=== PATIENT | female | born 1975 | race Caucasian/White ===

== ENCOUNTER 2023-08-29 18:48 | Observation (INO) | payer OTHER, SELFPAY ==
[2023-08-29] VITALS (8 sets, daily range): BP systolic 110–145; BP diastolic 64–98; BMI 31.6; BMI 31.4
[2023-08-29 11:48] LABS: % Basophils 0.9 % (0-2); % Immature Granulocytes 0.6 % (0-0.5); % Lymphocytes 27.4 % (20.5-51.1); % Monocytes 5.2 % (1.7-9.3); % Neutrophils 64.9 % (42.2-75.2); Absolute Basophils 0.1 10^3/uL (0-0.2); Absolute Eosinophils 0.1 10^3/uL (0-0.7); Absolute Immature Granulocytes 0.1 10^3/uL (0-0.05); Absolute Lymphocytes 2.2 10^3/uL (1.2-3.4); Absolute Monocytes 0.4 10^3/uL (0.1-0.6); Absolute Neutrophils 5.2 10^3/uL (1.4-6.5); Hematocrit 37.7 % (37.0-47.0); Mean Corp Hgb Conc. 34.5 g/dL (33.0-37.0); Mean Corpuscular Hgb 29.1 pg (27.0-31.0); Mean Corpuscular Volume 84.3 fL (81.0-99.0); Mean Platelet Volume 9.8 fL (7.4-10.4); Nucleated Red Blood Cells % 0 %; Platelet Count 324 10^3/uL (130-400); Red Blood Cell Count 4.47 10^6/uL (4.20-5.40); Red Cell Dist. Width 13.4 % (11.5-14.5)
[2023-08-29] MEDS: ZOFRAN 4 MG IV ×2 (12:00→17:33)
[2023-08-29] MEDS: NSS 1000 IV ×2 (12:02→20:35)
[2023-08-29 12:06] LABS: ALT (SGPT) 30 U/L (0-35); AST (SGOT) 37 U/L (14-36); Albumin 4.6 g/dl (3.5-5.0); Alkaline Phosphatase 116 U/L (38-126); Blood Urea Nitrogen 11 mg/dl (7-17); Calcium 9.5 mg/dl (8.4-10.2); Carbon Dioxide 24 mmol/L (22-30); Chloride 107 mmol/L (98-107); Estimated Creatinine Clearance 123 ml/min; Glucose 89 mg/dl (70-99); HCG, Serum Qualitative Screen Negative; Lipase 132 U/L (23-300); Potassium 4.4 mmol/L (3.5-5.1); Sodium 141 mmol/L (135-145); Total Bilirubin 0.6 mg/dl (0.2-1.3); Total Protein 7.8 g/dl (6.3-8.2); eGFR > 60.00
[2023-08-29 12:19] LABS: Urine Albumin Negative (Neg - Trace); Urine Bilirubin Negative (Negative); Urine Character Clear (Clear); Urine Color Yellow; Urine Glucose Negative (Negative); Urine Ketone Negative (Negative); Urine Leukocyte 2+ (Negative); Urine Nitrite Negative (Negative); Urine Occult Blood Negative (Negative); Urine Urobilinogen Negative (Neg - 1+)
[2023-08-29 12:59] LABS: Urine Squamous Cell >30 /LPF (Few)
[2023-08-29 13:00] LABS: Urine Bacteria Moderate (Negative); Urine Red Blood Cell 0-2 /HPF (0-2); Urine White Cell 0-2 /HPF (0-5)
[2023-08-29] MEDS: ATIVAN 0.5 MG PO (13:51)
[2023-08-29] MEDS: ATIVAN 1 MG IV (14:48)
[2023-08-29] MEDS: BENADRYL 50 MG IV (15:23)
[2023-08-29] MEDS: REGLAN 10 MG IV ×2 (15:23→21:01)
--- NOTE | 2023-08-29 16:49 | ED.GENMED ---
History of Present Illness
General
Chief Complaint: Fainting Sensation
Source: patient
Exam Limitations: none
Time Seen by Provider: 08/29/23 11:29
Nursing documentation reviewed up to this point in time: agreed with
Travel History
Have you had any contact with someone who has COVID-19?: No
Do you have any symptoms of coronavirus? Fever > 100 degrees, chills, cough, shortness of breath, sore throat, loss of taste or smell, muscle aches, or headache?: No
History of Present Illness
History of Present Illness:
48-year-old female with past medical history of anxiety depression panic attacks presenting to the emergency department today with concerns of nausea and anxiety vomited multiple times as well. Claims that she think she is also having a panic
attack that she does have frequently and takes Ativan as needed. Denies any initial chest pain shortness of breath diarrhea fever. Denies any sick contacts.
Past History
Past History
ED Past Medical History: None
ED Past Surgical History: None
Review of Systems
Review of Systems
Allergies reviewed?: Yes
All Other Systems: ROS reviewed and negative except as documented in HPI and ROS
Phy Exam
Physical Exam
Physical Exam:
GENERAL: Alert
EYE: pupils equal and reactive
NECK: Supple, no significant adenopathy.
ENT: o/p clr, mmm.
CARDIAC: Regular rate and rhythm .
LUNGS: Clear breath sounds bilaterally, no acute respiratory distress, no wheezes/rales/rhonchi
ABDOMEN: Soft, without focal tenderness, no r/g, no cvat
NEUROLOGICAL: Alert and oriented, no focal neuro deficits
SKIN: Warm and dry, skin intact.
MUSCULOSKELETAL: No edema, well perfused.
PSYCH: Normal and appropriate interaction.
Course
Orders/Labs/Results
Orders:
Orders
08/29/23 11:37
Test Result ONCE
08/29/23 11:38
Complete Blood Count/With Diff Urgent
Comprehensive Metabolic Panel Urgent
HCG, Serum Qualitative Screen Urgent
Lipase Urgent
08/29/23 11:54
Ondansetron Injectable [Zofran] 4 mg IV NOW STA
08/29/23 11:55
0.9% Sodium Chloride 1000 ml [Nss] 1,000 ml IV BOLUS
08/29/23 12:10
Urinalysis Reflex To Culture Urgent
Date Specimen was Collected: 08/29/23
Time Specimen was Collected: 12:02
Urine Microscopic Reflex Cult Urgent
Urine Culture Urgent
NATE Source: U
Specimen Description:
Date Specimen was Collected: 08/29/23
Time Specimen was Collected: 12:02
08/29/23 13:45
Lorazepam [Ativan] 0.5 mg PO NOW STA
08/29/23 14:41
Lorazepam [Ativan] 1 mg IV NOW STA
08/29/23 14:56
EKG [Electrocardiogram (*1)] Urgent
Reason for Study: Tachycardia
08/29/23 14:57
EKG- Treatment ONCE
08/29/23 15:04
Chest X-ray Portable [CR Chest Portable - 1 View] Urgent
Comment:
Reason For Exam: acute chest pain
Reason Study Needs to be Portable: Patient Unstable
08/29/23 15:14
Diphenhydramine [Benadryl] 50 mg IV NOW STA
Metoclopramide [Reglan] 10 mg IV NOW STA
08/29/23 17:11
Ondansetron Injectable [Zofran] 4 mg IV NOW STA
Abnormal Lab Results
08/29/23 08/29/23
11:38 12:10
Abs Immat Gran (auto) 0.1 H 10^3/uL
(0-0.05)
Immature Gran % 0.6 H %
(0-0.5)
AST 37 H U/L
(14-36)
Leukocyte Esterase Rfl 2+ A
(Negative)
Urine Bacteria (Reflex) Moderate A
(Negative)
08/29/23 11:38
08/29/23 11:38
Vital Signs
Initial and Last Documented VS:
Initial Vital Signs
Temp Pulse Resp BP Pulse Ox
99.3 F 86 16 118/73 97
08/29/23 11:21 08/29/23 11:21 08/29/23 11:21 08/29/23 11:21 08/29/23 11:21
Last Documented Vital Signs
Temp Pulse Resp BP Pulse Ox
98.0 F 71 18 111/73 100
08/29/23 15:36 08/29/23 17:30 08/29/23 16:16 08/29/23 16:00 08/29/23 16:00
MDM/Problems Addressed
MDM/Problems Addressed:
48-year-old female presenting to the emergency department today with concerns of nausea vomiting anxiety prior to arrival brought in by EMS also felt lightheaded. On arrival vital signs are normal. She did not appears anxious was offered Ativan
but initially refused because she wanted to be able to drive home. Was given Zofran fluids and labs were obtained labs unremarkable EKG with no signs of ischemia or arrhythmia urinalysis not consistent with infection. Chest x-ray normal patient
claims that she was feeling increasingly anxious and requested an Ativan she took the Ativan and immediately vomited. She then started to hyperventilate an IV was placed was given IV Ativan with improving symptoms. She was claiming that she was
having some chest discomfort after she was hyperventilating and vomited a few times here. Repeat EKG was performed without acute abnormalities and chest x-ray was normal as well. Cardiac process unlikely in the circumstance. Patient given
multiple medications still retching and vomiting and feeling very lightheaded plan to admit for further treatment.
*Critical Care Note
Total Time (30-74mins, 75-104mins- exclusive of procedures): Not Applicable
ED Attending Note
-
Portions of this chart may have been created with voice recognition software.� Occasional wrong word or��sound alike� substitutions may have occurred due to the inherent limitations of voice recognition software.
Discharge Plan
Departure
Patient Disposition: Admit
Date of Disposition: 08/29/23
Time of Disposition: 18:34
Admit to: Med/Surg
Admit to doctor: Bueno
Presentation/result/management discussed w/ accepting MD/DO: Hospitalist
Patient with high blood pressure during this ER visit?: No
Condition: Good
Covid-19: Not Applicable
Discharge Problem:
Vomiting
Prescriptions:
No Action
lorazepam 0.5 MG tablet
0.5 mg PO Q4HPRN PRN (Reason: anxiety)
Referrals:
UNKNOWN - PT DOES,NOT KNOW [Family Provider] -
Interventions
Interventions:
*Risk Screen - Suicide Last Done: 08/29/23 11:29
*General Assessment Last Done: 08/29/23 11:29
*Neglect/Abuse Screening Last Done: 08/29/23 11:29
ED- Neurological Assessment Last Done: 08/29/23 11:38
ED- Cardiac Assessment Last Done: 08/29/23 11:38
BX-Yeeksg-Gtkcicrqew Assessment Last Done: 08/29/23 11:38
Discharge Date and Time
Print Language: MONTSERRATIAN
--- NOTE | 2023-08-29 18:45 | HPS.HSE ---
Family Physician
-
Family Physician: NOT KNOW UNKNOWN - PT DOES
Chief Complaint
-
vomiting
History of Present Illness
48-year-old female past medical history of anxiety, depression, panic attacks presenting to the emergency room with nausea and vomiting, lightheadedness after taking 1.7 mg of Wegovy for the first time this morning for weight loss. This was the
first time she took the medication. She also felt anxious and did have chest pain described as aching which she continues to have. She denies shortness of breath. She denies any fevers or chills. She denies abdominal pain or diarrhea.
While in the emergency room she hyperventilated was given IV Ativan. She currently states that she does not feel anxious.
She does get panic attacks frequently during which she gets nauseous.
She denies smoking, alcohol use or any drugs.
Medical History
Past Medical History
Past Medical History: Reports Other (anxiety, depression, panic attacks )
Past Surgical History: Reports None
Social History
Tobacco: Non-smoker
Alcohol: None
Drug: None
Family History
Family History: Not pertinent
Allergies / Home Medications
Allergies reflects when Allergies were last updated in [facility].
Home Medications with original date entered in [facility]
Allergy/Medication List:
Allergies
Allergy/AdvReac Type Severity Reaction Status Date / Time
Penicillins Allergy Rash Verified 08/29/23 11:29
Home Medications
lorazepam 0.5 mg tablet 0.5 mg PO Q4HPRN PRN anxiety 05/07/19
sertraline 50 mg tablet (Zoloft) 75 mg PO DAILY 08/29/23
Review of Systems
-
History Source: Patient
A 12 point ROS was completed and negative except as noted: Yes
Constitutional: Reports No Symptoms
EENT: Reports No Symptoms
Respiratory: Reports No Symptoms
Cardiac: Reports See HPI
Abdomen/GI: Reports See HPI
: Reports No Symptoms
Musculoskeletal: Reports No Symptoms
Skin: Reports No Symptoms
Neurological: Reports No Symptoms
Endocrine: Reports No Symptoms
Hematologic/Lymphatic: Reports No Symptoms
Psych: Reports No Symptoms
Physical Exam
Vital Signs
Vital Signs
Temp Pulse Resp BP Pulse Ox
98.0 F 71 18 111/73 100
08/29/23 15:36 08/29/23 17:30 08/29/23 16:16 08/29/23 16:00 08/29/23 16:00
Physical Exam
General: Well Developed, Well Nourished and No Apparent Distress
HEENT: NormoCephalic, Moist mucous membranes and Atraumatic
Respiratory: Clear
Cardiac: S1/S2 and Regular Rhythm; No Murmur or Rub
GI: Soft, Non Tender, Non Distended and Normal Bowel Sounds; No Organomegaly
Rectal: Deferred by Provider
Musculoskeletal: No Clubbing, No Cyanosis and No Edema
Skin: No Rash
Neuro: Nonfocal/grossly intact
Laboratory Results
-
08/29/23 11:38
08/29/23 11:38
Laboratory Results
Total Bilirubin 0.6 mg/dl (0.2-1.3) 08/29/23 11:38
AST 37 U/L (14-36) H 08/29/23 11:38
ALT 30 U/L (0-35) 08/29/23 11:38
Alkaline Phosphatase 116 U/L (38-126) 08/29/23 11:38
Lipase 132 U/L (23-300) 08/29/23 11:38
Data Reviewed
-
Lab Data: Labs Reviewed by me
Old Records: Reviewed
Impression/Plan
-
IMPRESSION:
PLAN:
# Vomiting secondary to Wegovy toxicity
-Started on 1.7 mg which is too high for first dose
-N.p.o.
-IV fluids
-Reglan for nausea and vomiting
# Chest pain possibly due to anxiety/musculoskeletal/GERD
-EKG unremarkable
-Chest x-ray
-Chest tender to palpation
-Protonix
Anxiety/Hx of panic attacks
-Continue sertraline
-Continue as needed Ativan IV
Full code
DVT prophylaxis�heparin
N.p.o.
[2023-08-29] MEDS: NSS (PRESERVATIVE FREE) 10 ML IV (19:02)
[2023-08-29] MEDS: PROTONIX IV 40 MG IV (19:03)
--- NOTE | 2023-08-29 19:16 | PHANOTE ---
08/29/2023, med rec tech, spoke to pt. to obtain their med. history; per pt., she just started her Wegovy 1.7mg/0.75ml today and believes to have had a negative reaction to it; filled on 08/27/2023 for a 28-day supply.
[2023-08-29] MEDS: HEPARIN 5000 UNITS SC (20:36)
[2023-08-29] MEDS: BENADRYL 6.25 MG IV (23:29)
[2023-08-30] MEDS: ATIVAN 0.5 MG IV ×3 (01:46→22:05)
[2023-08-30] MEDS: NSS (PRESERVATIVE FREE) 0.25 ML IV ×3 (01:46→22:06)
[2023-08-30 03:00] VITALS: BP 112/67
[2023-08-30] MEDS: REGLAN 10 MG IV (03:50)
[2023-08-30 05:44] LABS: % Basophils 0.1 % (0-2); % Immature Granulocytes 0.3 % (0-0.5); % Lymphocytes 13.5 % (20.5-51.1); % Monocytes 4.2 % (1.7-9.3); % Neutrophils 81.9 % (42.2-75.2); Absolute Lymphocytes 1.6 10^3/uL (1.2-3.4); Absolute Monocytes 0.5 10^3/uL (0.1-0.6); Absolute Neutrophils 9.7 10^3/uL (1.4-6.5); Hematocrit 38.3 % (37.0-47.0); Hemoglobin 12.5 g/dL (12.0-16.0); Mean Corp Hgb Conc. 32.6 g/dL (33.0-37.0); Mean Corpuscular Hgb 28.9 pg (27.0-31.0); Mean Corpuscular Volume 88.5 fL (81.0-99.0); Mean Platelet Volume 9.7 fL (7.4-10.4); Nucleated Red Blood Cells % 0 %; Platelet Count 342 10^3/uL (130-400); Red Blood Cell Count 4.33 10^6/uL (4.20-5.40); Red Cell Dist. Width 13.8 % (11.5-14.5); White Blood Cell Count 11.9 10^3/uL (4.8-10.8)
[2023-08-30 06:09] LABS: ALT (SGPT) 26 U/L (0-35); AST (SGOT) 26 U/L (14-36); Albumin 4.3 g/dl (3.5-5.0); Alkaline Phosphatase 116 U/L (38-126); Blood Urea Nitrogen 9 mg/dl (7-17); Calcium 9.2 mg/dl (8.4-10.2); Carbon Dioxide 18 mmol/L (22-30); Chloride 109 mmol/L (98-107); Estimated Creatinine Clearance 118 ml/min; Glucose 102 mg/dl (70-99); Potassium 4.1 mmol/L (3.5-5.1); Sodium 139 mmol/L (135-145); Total Bilirubin 0.4 mg/dl (0.2-1.3); Total Protein 7.3 g/dl (6.3-8.2); eGFR > 60.00
[2023-08-30 07:00] VITALS: BP 131/79
[2023-08-30] MEDS: PROTONIX IV 40 MG IV ×2 (07:07→19:37)
[2023-08-30] MEDS: NSS (PRESERVATIVE FREE) 10 ML IV ×2 (07:07→19:37)
[2023-08-30] MEDS: ZOLOFT 75 MG PO (08:18)
[2023-08-30] MEDS: HEPARIN 5000 UNITS SC ×2 (08:18→19:37)
[2023-08-30] MEDS: ZOFRAN 4 MG IV ×3 (08:34→22:19)
[2023-08-30] MEDS: CARAFATE SUSPENSION 1 GM PO ×3 (10:35→21:51)
[2023-08-30] MEDS: MORPHINE SULFATE 1 MG IV ×3 (10:35→19:48)
[2023-08-30] MEDS: NSS 1000 IV (10:36)
[2023-08-30 11:00] VITALS: BP 105/75
--- NOTE | 2023-08-30 11:17 | CM ---
Met with pt at bedside
Lives with her daughter in a 2 story home
Works PT at [employer], independent, driving
DME - none
SNF/HH - denies past hx
Has ride home at d/c
PCP - Dr Valadez
Pharm - [facility]
CM will follow for d/c planning
Plan - anticipate home no needs
[2023-08-30] MEDS: TUMS EX (EXTRA STRENGTH) CHEWABLE 2 TABLET PO (12:04)
--- NOTE | 2023-08-30 13:28 | W.PN.HOSP.TC ---
Today's Communication/Plan
-
see outlined plan
Assessment / Plan
Assessment / Plan
Assessment:
Epigastric pain, nausea/vomiting
- from Wegovy toxicity - started on 1.7mg, too high for initial dose, no prior titrations were attempted
- stop Wegovy
- symptomatic control: PPI BID, prn anti-emetics, prn TUMS, carafate
- diet: clears, ADAT
- CXR and EKG unremarkable
Anxiety/Hx of panic attacks
- continue sertraline
- continue as needed Ativan IV
hyperchloremic metabolic acidosis
- switch fluids to Bicarbonate
DVT prophylaxis: SC heparin
Code: Full
Anticipated Discharge: Within 24 hours
Subjective/Interval History
-
Date of Service: August 30, 2023
reports epigastric pain, some vomiting last evening, minor amounts today
Objective Data
-
Labs:
Laboratory Results
08/30/23
05:29
WBC 11.9 H
Hgb 12.5
Hct 38.3
Plt Count 342
Sodium 139
Potassium 4.1
Chloride 109 H
Carbon Dioxide 18 L
BUN 9
Creatinine 0.6
Glucose 102 H
Calcium 9.2
Total Bilirubin 0.4
AST 26
ALT 26
Alkaline Phosphatase 116
Vital Signs:
Vital Signs
Temp Pulse Resp BP Pulse Ox
98.6 F 100 20 105/75 99
08/30/23 11:00 08/30/23 11:00 08/30/23 11:00 08/30/23 11:00 08/30/23 11:00
I&O
08/29/23 08/30/23 08/31/23
06:59 06:59 06:59
Intake Total 720 / 720
Output Total 100 / 100
Balance -100 / -100 720 / 720
Physical Exam
-
General: Appears in Distress (epigastric pain)
HEENT: Normocephalic and Atraumatic
Respiratory: Negative Wheezes
Cardiac: Regular Rhythm and S1/S2
Genito-urinary: No Costovertebral Tender
Musculoskeletal: No Edema
Neuro: AO x 3
Psych: Calm
Data Reviewed
-
Total Time Spent with Patient (in minutes): 42
Labs: Labs Reviewed by me
[2023-08-30 15:00] VITALS: BP 143/72
[2023-08-30] MEDS: SODIUM BICARBONATE 1150 MEQ IV (15:04)
[2023-08-30 19:15] VITALS: BP 115/72
[2023-08-30 23:20] VITALS: BP 147/83
[2023-08-31] MEDS: MORPHINE SULFATE 1 MG IV ×3 (00:39→10:11)
[2023-08-31] MEDS: REGLAN 10 MG IV (02:02)
[2023-08-31 03:45] VITALS: BP 159/83
[2023-08-31] MEDS: TUMS EX (EXTRA STRENGTH) CHEWABLE 2 TABLET PO (04:07)
[2023-08-31] MEDS: ZOFRAN 4 MG IV (04:20)
[2023-08-31 05:38] LABS: Hematocrit 36.9 % (37.0-47.0); Hemoglobin 12.2 g/dL (12.0-16.0); Mean Corp Hgb Conc. 33.1 g/dL (33.0-37.0); Mean Corpuscular Volume 87.6 fL (81.0-99.0); Mean Platelet Volume 9.7 fL (7.4-10.4); Platelet Count 304 10^3/uL (130-400); Red Blood Cell Count 4.21 10^6/uL (4.20-5.40); Red Cell Dist. Width 13.7 % (11.5-14.5); White Blood Cell Count 12.3 10^3/uL (4.8-10.8)
[2023-08-31 05:55] LABS: Blood Urea Nitrogen 14 mg/dl (7-17); Carbon Dioxide 25 mmol/L (22-30); Chloride 105 mmol/L (98-107); Estimated Creatinine Clearance 118 ml/min; Glucose 105 mg/dl (70-99); Potassium 3.6 mmol/L (3.5-5.1); Sodium 140 mmol/L (135-145); eGFR > 60.00
[2023-08-31 07:00] VITALS: BP 132/71
[2023-08-31] MEDS: ATIVAN 0.5 MG IV (07:44)
[2023-08-31] MEDS: ZOLOFT 75 MG PO (07:45)
[2023-08-31] MEDS: PROTONIX IV 40 MG IV (07:45)
[2023-08-31] MEDS: NSS (PRESERVATIVE FREE) 10 ML IV (07:45)
[2023-08-31] MEDS: CARAFATE SUSPENSION PO (08:02)
[2023-08-31] MEDS: BENTYL 10 MG PO (08:36)
[2023-08-31] MEDS: HEPARIN 5000 UNITS SC (08:44)
--- NOTE | 2023-08-31 09:00 | PTCARENOTE ---
Pt c/o anxiety/epigastric pain/nausea at shift change, asking to speak to administration. Repeatedly kneeling at bedside and pacing room. PRN Ativan adminsitered and emotional support provided. Pt tearful/anxious, discussing her history of
depression/anxiety. Reports has been known to self mutilate in the past during stressful times and is feeling stressed now. Support provided, reports no intentions to self harm at present and asking to take a shower. All above relayed to MD and
patient allowed to shower.
After shower, pt feeling better - relaxed, reports pain improved, less nauseous. Encouraged to ambulate halls.
--- NOTE | 2023-08-31 10:39 | PTCARENOTE ---
in to see patient - pt began pacing room, moaning loudly and kneeling on floor again. Pt asking for pain medicine and called 911 to report her pain. Pt initially unable to describe location or quality of pain, but after prompting from
scraper operator reported crushing chest pain. EKG done - showed NSR, no abnormality. VSS. PRN morphine provided for pain. Shortly after, reported patient on the floor. Upon entering room, patient seen with knees on floor and upper body under
elevated HOB, laying on bed frame. Pt reported she had slipped, was able to get back to standing position without any assistance and instructed to get back in bed. No injury evident, ROM intact in all extremities, pain unchanged. Reported to .
--- NOTE | 2023-08-31 11:15 | PTCARENOTE ---
Pt now asking if she can take a shower again. Informed she could not shower now d/t fall risk after slipping at bedside. In response, pt asked for discharge paperwork. MD to floor to see patient. CLAIRE discussed and form signed. Pt leaving with sister.
--- NOTE | 2023-08-31 11:17 | W.PN.UPDATE ---
Update Note
Progress Note Update
patient upset with lack of improvement despite maximized medically therapy including PPI, TUMS, anti-emetics, anti-spasmodics, IVF, pain control and anxiety meds. She would like to leave AMA
Risks of leaving AMA reviewed with patient including worsening GI symptoms, aspiration from recurrent vomiting, dehydration, HORTENSIA etc.
Advised her to see PCP or call their office for any further guidance. She reports she has all meds available at home or through OTC.
--- NOTE | 2023-08-31 11:36 | CM ---
Pt left AMA
Family member present at time of d/c
== END 2023-08-31 11:27 | disposition left against medical advice (07) ==
LOC: 3 WEST ACU 18:48
PROVIDERS: Physician Assistant; ADMITTING PHYSICIAN Hospitalist; ATTENDING PHYSICIAN Internal Medicine; EMERGENCY PHYSICIAN Emergency Medicine
DX: R11.2 Nausea with vomiting, unspecified (principal); R55 Syncope and collapse; F41.0 Panic disorder [episodic paroxysmal anxiety]; F41.9 Anxiety disorder, unspecified; T50.995A Adverse effect of other drugs, medicaments and biological substances, initial encounter; Y92.9 Unspecified place or not applicable; R07.9 Chest pain, unspecified; R00.0 Tachycardia, unspecified; R42 Dizziness and giddiness; R06.4 Hyperventilation; K21.9 Gastro-esophageal reflux disease without esophagitis; R10.13 Epigastric pain; E87.8 Other disorders of electrolyte and fluid balance, not elsewhere classified; E87.29 Other acidosis; Z88.0 Allergy status to penicillin
CPT/HCPCS: 71045; 80048; 80053; 81003; 81015; 83690; 84703; 85025; 85027; 87086; 93005; 96361; 96374; 96375; 96376; 99285; G0378